=== PATIENT | male | born 1985 | race Caucasian/White ===

== ENCOUNTER 2023-10-13 13:02 | Emergency (ER) | payer OTHER, SELFPAY ==
[2023-10-13 13:29] VITALS: BP 143/93; PULSE 97; RESP 20; TEMP 36.8; O2SAT 97; BMI 29.9
--- NOTE | 2023-10-13 14:09 | ED.WOUNDLAC ---
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 Scrape the lateral aspect of the 5th digit on his right hand today on a sharp corner. He suffered a flap 3.5 cm laceration. He has good range of motion no tendon damage. He is able to control the bleeding but there is still a flap open. No other significant symptoms. His only mild. Related Data Home Medications ?Medication ?Instructions ?Recorded ?Confirmed zolpidem 5 mg tablet (Ambien) 5 mg PO QHS 10/13/23 10/13/23 Allergies Allergy/AdvReac Type Severity Reaction Status Date / Time No Known Drug Allergies Allergy Verified 10/13/23 13:28 Review of Systems Status of ROS: Reports: 10 or more systems reviewed and unremarkable except as noted in History and below Exam Narrative: Exam Narrative: EXAM GENERAL: Patient appears comfortable and well. EYES: No scleral icterus. LYMPH: No supraclavicular or cervical lymphadenopathy. SKIN: Laceration as noted above on the right 5th digit upper extremity. EXT: No dependent lower extremity pedal edema. PSYCH: Good eye contact, speech is not pressured. Const: Vital Signs, click to edit/add: Vital Signs - 24 hr 10/13/23 13:29 Temperature 98.3 F Pulse Rate [Pulse Oximeter] 97 Respiratory Rate 20 Blood Pressure [Ri ght Upper Arm] 143/93 H Pulse Oximetry 97 Oxygen Delivery Me thod Room Air Course Course ED Course: Patient seen and examined. Digital block performed. Wound aggressively cleaned with soap and water. Vital Signs Vital signs: Initial Vital Signs Temperature 98.3 F 10/13/23 13:29 Temperature Source Temporal Artery Scan 10/13/23 13:29 Pulse Rate 97 10/13/23 13:29 Respiratory Rate 20 10/13/23 13:29 Blood Pressure 143/93 H 10/13/23 13:29 Blood Pressure Mean 109 H 10/13/23 13:29 Pulse Oximetry 97 10/13/23 13:29 Oxygen Delivery Method Room Air 10/13/23 13:29 Vital Signs Temperature 98.3 F 10/13/23 13:29 Pulse Rate 97 10/13/23 13:29 Respiratory Rate 20 10/13/23 13:29 Blood Pressure 143/93 H 10/13/23 13:29 Pulse Oximetry 97 10/13/23 13:29 Oxygen Delivery Method Room Air 10/13/23 13:29 Temperature 98.3 F 10/13/23 13:29 Pulse Rate 97 10/13/23 13:29 Respiratory Rate 20 10/13/23 13:29 Blood Pressure 143/93 H 10/13/23 13:29 Pulse Oximetry 97 10/13/23 13:29 Oxygen Delivery Method Room Air 10/13/23 13:29 MDM - Wound/Laceration MDM Narrative Medical decision making narrative: Patient presents with laceration. We did clean the wound and verify his tetanus status. Did provide a digital block close the defect with 5 running 3-0 Ethilon sutures. We instructed him on wound care dress the wounds. He will have his sutures removed in approximately 10 days. Discharge Plan Discharge Clinical Impression: Laceration Patient Disposition: Home, Self-Care Condition: Stable Instructions: Laceration (ED) Additional Instructions: Wound care as directed Daily dressing changes Sutures out in 10 days. Tylenol Motrin Ice Activity Level: No Restrictions Discharge Diet: Regular Prescriptions: No Action zolpidem [Ambien] 5 mg tablet 5 mg PO QHS Rx Instructions: may repeat once if no response in 30-60 minutes Follow Up/Referrals: Provider,Not a Local [Primary Care Provider] - Stand Alone Forms: MyHealth Info Instructions
== END 2023-10-13 14:20 | disposition home or self-care (01) ==
PROVIDERS: Emergency Provider Internal Medicine
DX: S61.216A Laceration without foreign body of right little finger without damage to nail, initial encounter (principal); W26.0XXA Contact with knife, initial encounter
CPT/HCPCS: 12002; 99283